=== PATIENT | male | born 1945 | race Caucasian/White ===

== ENCOUNTER 2018-09-27 09:02 | Day surgery (SDC) | payer MEDICARE, BC ==
[~2018-09-27] VITALS: Ht 188 cm; Wt 108.9 kg
[~2018-09-27 09:02] MED LIST: ALLOPURINOL100 MG PO; B-121000 MC4 PO; COUMADIN5 MG PO; D3 HIGH POT1000 UNIT PO; FELODIPINE ER2.5 MG PO; FOLIC ACID1 MG PO; METOPROLOL SUC100 MG PO; THIAMINE HCL100 MG PO
[2018-09-27 11:33] VITALS: BP 145/65
== END 2018-09-27 11:50 | disposition home or self-care (01) ==
LOC: ENDO 09:02
PROVIDERS: ATTEND Surgery
PROC: 0DJD8ZZ Inspection of Lower Intestinal Tract, Via Natural or Artificial Opening Endoscopic (ICD-10-PCS; principal; 2018-09-27)
DX: R19.7 Diarrhea, unspecified (principal); K57.30 Diverticulosis of large intestine without perforation or abscess without bleeding; Z79.01 Long term (current) use of anticoagulants; Z95.2 Presence of prosthetic heart valve; Z87.19 Personal history of other diseases of the digestive system